=== PATIENT | female | born 1985 ===

== ENCOUNTER 2021-05-20 09:25 | Outpatient (CLI) | payer OTHER | END 2021-05-20 09:28 | disposition home or self-care (01) | LOC: SONOGRAMA 09:25 | PROVIDERS: ATTEND Pathology Anatomic Pathology & Clinical Pathology | DX: E04.1 Nontoxic single thyroid nodule (principal) ==

== ENCOUNTER 2022-07-28 10:10 | Outpatient (CLI) | payer OTHER | END 2022-07-28 10:15 | disposition home or self-care (01) | LOC: SONOGRAMA 10:10 | PROVIDERS: ATTEND Pathology Anatomic Pathology & Clinical Pathology | DX: D44.0 Neoplasm of uncertain behavior of thyroid gland (principal); D34 Benign neoplasm of thyroid gland; E07.9 Disorder of thyroid, unspecified; E06.5 Other chronic thyroiditis; E04.9 Nontoxic goiter, unspecified; E04.1 Nontoxic single thyroid nodule ==